=== PATIENT | male | born 1990 | race Asian ===

== ENCOUNTER 2022-01-29 03:35 | Emergency (ER) | payer OTHER ==
[~2022-01-29] VITALS: Ht 182.9 cm; Wt 93.0 kg
[2022-01-29 03:43] VITALS: BP 128/82
[2022-01-29] MEDS ORDERED: ACETAMINOPHEN 325 MG TAB PO ONE (03:50)
--- NOTE | 2022-01-29 04:00 | NUR ---
Patient discharged with v/s stable. Written and verbal after care instructions given and explained. Patient verbalized understanding. Ambulatory with steady gait. All questions addressed prior to discharge. Advised to follow up with PMD.
== END 2022-01-29 04:00 | disposition home or self-care (01) ==
LOC: MED 03:35
DX: J06.9 Acute upper respiratory infection, unspecified (principal)
CPT/HCPCS: 81025; 99284